=== PATIENT | male | born 1960 | race Hispanic/Latino ===

== ENCOUNTER 2020-01-09 11:25 | Emergency (ER) | payer SELFPAY ==
[2020-01-09] MEDS ORDERED: DIPHtheria,PERTUSSIS(ACELL),TETANUS VACCINE/PF 0.5 ML VIAL IM ONE (19:15)
--- NOTE | 2020-01-09 19:17 | Emergency Department Report ---
- General Chief complaint: Medical Clearance Stated complaint: PAIN/HOMLESS/LUNG PAIN Time Seen by Provider: 01/09/20 19:13 Source: patient Mode of arrival: Ambulatory Limitations: No Limitations - History of Present Illness Initial comments: 59-year-old male presents to the emergency room states that he has had wound rash on his left lower leg wants to be sure is noninfectious. Patient states that he is homeless and is trying to go to the [facility] in [place] but they would not let them and with the rash. Patient denies any fever chills. Patient does report he tried to bandage it up and when he took the wound off it caused some of the skin to the left. MD complaint: rash Onset/Timin -: days(s) Tetanus Up to Date: unsure Location: LLE Severity: moderate Consistency: intermittent Improves with: none Worsens with: none Associated symptoms: itching Treatments Prior to Arrival: bandages, OTC topical medication - Related Data Previous Rx's Medication Instructions Recorded Last Taken Type Amoxicillin [Trimox CAP] 500 mg PO Q8H 10 Days #30 capsule 01/09/20 Unknown Rx Allergies Allergy/AdvReac Type Severity Reaction Status Date / Time No Known Allergies Allergy Unverified 01/09/20 12:02 Abscess Boil HPI - HPI Chief Complaint: Medical Clearance Stated Complaint: PAIN/HOMLESS/LUNG PAIN Time Seen by Provider: 01/09/20 19:13 Home Medications: Previous Rx's Medication Instructions Recorded Last Taken Type Amoxicillin [Trimox CAP] 500 mg PO Q8H 10 Days #30 capsule 01/09/20 Unknown Rx Allergies/Adverse Reactions: Allergies Allergy/AdvReac Type Severity Reaction Status Date / Time No Known Allergies Allergy Unverified 01/09/20 12:02 ED Review of Systems ROS: Stated complaint: PAIN/HOMLESS/LUNG PAIN Other details as noted in HPI Comment: All other systems reviewed and negative ED Past Medical Hx - Past Medical History Hx Psychiatric Treatment: Yes - Surgical History Additional Surgical History: dental - Social History Smoking Status: Former Smoker Substance Use Type: None - Medications Home Medications: Home Medications Medication Instructions Recorded Confirmed Last Taken Type Amoxicillin [Trimox CAP] 500 mg PO Q8H 10 Days #30 capsule 01/09/20 Unknown Rx ED Physical Exam - General Limitations: No Limitations General appearance: alert, in no apparent distress - Head Head exam: Present: atraumatic, normocephalic - Eye Eye exam: Present: normal appearance - Expanded Lower Extremity Exam Left Knee exam: Present: normal inspection, full ROM Ankle exam: Present: full ROM, swelling Foot/Toe exam: Present: full ROM, tenderness, swelling, abrasion Neuro vascular tendon exam: Present: no vascular compromise - Back Exam Back exam: Present: normal inspection - Neurological Exam Neurological exam: Present: alert, normal gait - Psychiatric Psychiatric exam: Present: normal affect, normal mood - Skin Skin exam: Present: rash, erythema, petechiae, abrasion ED Course Vital Signs 01/09/20 11:58 Temperature 98 F Pulse Rate 64 Respiratory 20 Rate Blood Pressure 128/75 O2 Sat by Pulse 97 Oximetry ED Medical Decision Making - Medical Decision Making 59-year-old male presents to the emergency room states that he has had wound rash on his left lower leg wants to be sure is noninfectious. Patient states that he is homeless and is trying to go to the [facility] in [place] but they would not let them and with the rash. Patient denies any fever chills. Patient does report he tried to bandage it up and when he took the wound off it caused some of the skin to the left. Critical care attestation.: If time is entered above; I have spent that time in minutes in the direct care of this critically ill patient, excluding procedure time. ED Disposition Clinical Impression: Rash, Cellulitis of left lower limb Abrasion, lower leg, anterior Qualifiers: Encounter type: initial encounter Laterality: left Qualified Code(s): S80.812A - Abrasion, left lower leg, initial encounter Disposition: DC- TO HOME OR SELFCARE Is pt being admited?: No Does the pt Need Aspirin: No Condition: Stable Instructions: Cellulitis (ED) Additional Instructions: Please keep wound clean and dry complete antibiotics as prescribed. She can take [id number] ibuprofen or Tylenol if needed for pain. You can use [id number] triple antibiotic. Prescriptions: Amoxicillin [Trimox CAP] 500 mg PO Q8H 10 Days #30 capsule Referrals: PRIMARY CARE [Primary Care Provider] - 3-5 Days [facility] [Provider Group] - 3-5 Days
[2020-01-09 19:38] VITALS: BP 139/79
== END 2020-01-09 19:59 | disposition home or self-care (01) ==
LOC: ED 11:25
DX: S80.812A Abrasion, left lower leg, initial encounter (principal); L03.116 Cellulitis of left lower limb; R21 Rash and other nonspecific skin eruption; Z87.891 Personal history of nicotine dependence; Z59.0 Homelessness; X58.XXXA Exposure to other specified factors, initial encounter; Y93.89 Activity, other specified; Y92.89 Other specified places as the place of occurrence of the external cause; Y99.8 Other external cause status
CPT/HCPCS: 90471; 90715; 99282